=== PATIENT | female | born 1955 | race Caucasian/White ===

== ENCOUNTER 2017-02-11 13:22 | Emergency (ER) | payer MEDICAID, OTHER ==
[~2017-02-11] VITALS: Ht 157.5 cm; Wt 86.2 kg
[2017-02-11] MEDS ORDERED: MELO-270 PO (13:43)
[2017-02-11] MEDS ORDERED: IPRATROPIUM BROMIDE 0.5 MG/2.5 ML NEBU NEB ONE (14:00)
[2017-02-11] MEDS ORDERED: ALBUTEROL SULFATE 2.5 MG/3 ML NEBU NEB ONE (14:00)
--- NOTE | 2017-02-11 14:30 | NUR ---
BREATHING TX COMPLETED, PT STATES FEELING BETTER AND BREATHING EASIER.
--- NOTE | 2017-02-11 14:37 | NUR ---
Patient discharged to home in stable conditon. Written and verbal after care instructions given. Patient verbalizes understanding of instructions.
[2017-02-11 14:39] VITALS: BP 155/71
== END 2017-02-11 14:40 | disposition home or self-care (01) ==
LOC: ER 13:26
DX: J98.01 Acute bronchospasm (principal)
CPT/HCPCS: 71010; A4663